=== PATIENT | male | born 1985 | race Caucasian/White ===

== ENCOUNTER → 2019-11-23 | Outpatient (CLI) | payer BC ==
--- NOTE | 2019-11-24 10:45 | RADIOLOGY REPORT (SQ) ---
EXAM DESCRIPTION: MRI RT LOWER JOINT WITHOUT COMPLETED DATE/TIME: 11/23/2019 8:49 pm REASON FOR STUDY: M23.91 UNSPECIFIED INTERNAL DERANGEMENT OF RIGHT KNEE M23.91 UNSPECIFIED INTERNAL DERANGEMENT OF RIGHT KNEE COMPARISON: None. TECHNIQUE: Rightknee images acquired and stored on PACS. Multiplanar images include fat sensitive s equences as T1, water sensitive sequences as FST2 or STIR, cartilage sensitive sequences as FSPD, and gradient echo sequences. LIMITATIONS: None. FINDINGS: JOINT AND BURSAE: Small joint effusion. No popliteal cyst. BONE CORTEX AND MARROW: Generalized bone bruising of the proximal tibia. ACL: Avulsion of the ACL from the femoral attachment. PCL: Intact. MCL: Grade 2 tear medial collateral ligament. LCL: Intact. No periligamentous edema or fluid. MEDIAL MENISCUS: No tears. No abnormal signal. LATERAL MENISCUS: No tears. No abnormal signal. MEDIAL COMPARTMENT: Cartilage preserved. No bone bruises or reactive marrow edema. No osteophytes. LATERAL COMPARTMENT: Cartilage preserved. No bone bruises or reactive marrow edema. No osteophytes. PATELLA: No chondromalacia. No subchondral cysts. Medial and lateral retinacula intact. EXTENSOR MECHANISM: Intact. Quadriceps and patella tendons normal. SOFT TISSUES: Edema along the medial head of the gastrocnemius muscle. OTHER: No other significant finding. IMPRESSION: ACL avulsions from the femoral attachment. Grade 2 tear medial collateral ligament. Edema in the gastrocnemius muscle. TECHNICAL DOCUMENTATION: JOB ID: [id number] 2010 [facility]- All Rights Reserved Reading location - IP/workstation name: [email or web address]
== END ==
LOC: RAD 18:52
PROVIDERS: ATTEND Orthopaedic Surgery
DX: M23.91 Unspecified internal derangement of right knee (principal)

== ENCOUNTER 2020-02-24 06:45 | Day surgery (SDC) | payer BC ==
[~2020-02-24 06:45] MED LIST: ACETAMINOPHEN 325 MG TABLET PO PRN; CEFAZOLIN SODIUM 2 GM in DEXTROSE 5%-WATER 100 ML IV PRN; DEXAMETHASONE SOD PHOSPHATE INJ 4 MG/1 ML VIAL ONE; FENTANYL CITRATE INJ/PF 100 MCG/2 ML AMPUL ONE; HYDROMORPHONE HCL INJ/PF 2 MG/ML AMPULE ONE; LACTATED RINGERS 1000 ML IV PRN; LIDOCAINE 0.5% INJ-PF (5 MG/ML) 50 ML SDV SUBCUT PRN; MIDAZOLAM 2 MG/2 ML INJ ONE; ONDANSETRON HCL INJ/PF 4 MG/2 ML SDV ONE; OXYCODONE HCL IR 5 MG TABLET PO PRN; PROPOFOL INJ 200 MG/20 ML VIAL IV ONE; TRAMADOL HCL 50 MG TABLET PO PRN
[2020-02-24] MEDS ORDERED: TRAMADOL HCL 50 MG TABLET ONE (07:03)
[2020-02-24] MEDS ORDERED: ACETAMINOPHEN 325 MG TABLET ONE (07:03)
[2020-02-24] MEDS ORDERED: OXYCODONE HCL SR 10 MG TABLET PO ONE (07:03)
[2020-02-24] MEDS ORDERED: MIDAZOLAM 2 MG/2 ML INJ ONE (07:20)
[2020-02-24] MEDS ORDERED: ROPIVACAINE HCL 0.5% INJ/PF (5 MG/1 ML) 30 ML SDV ONE (07:20)
[2020-02-24] MEDS ORDERED: FENTANYL CITRATE INJ/PF 100 MCG/2 ML AMPUL ONE ×2 (07:20→12:26)
[2020-02-24] MEDS ORDERED: EPINEPHRINE INJ/PF 1 MG/1 ML AMPULE ONE (08:55)
[2020-02-24] MEDS ORDERED: OXYCODONE-ACETAMINOPHEN 5-325 MG TABLET PO PRN ×2 (09:33)
[2020-02-24] MEDS ORDERED: DIPHENHYDRAMINE HCL 50 MG/ML VIAL IV PRN (09:33)
[2020-02-24] MEDS ORDERED: PROMETHAZINE HCL INJ 25 MG/1 ML VIAL IV PRN ×2 (09:33)
[2020-02-24] MEDS ORDERED: MEPERIDINE HCL/PF INJ 25 MG/1 ML DISP.SYRIN IV PRN (09:33)
[2020-02-24] MEDS ORDERED: MORPHINE SULFATE 10 MG/ML INJ IV PRN ×2 (09:33→13:23)
[2020-02-24] MEDS ORDERED: FENTANYL CITRATE INJ/PF 100 MCG/2 ML AMPUL IV PRN ×3 (09:33)
[2020-02-24] MEDS ORDERED: ONDANSETRON HCL INJ/PF 4 MG/2 ML SDV IV PRN (09:33)
--- NOTE | 2020-02-24 12:11 | Operative Report ---
Operative Report DATE OF SURGERY: 02/24/20 PREOPERATIVE DIAGNOSIS: Right anterior cruciate ligament rupture POSTOPERATIVE DIAGNOSIS: right anterior cruciate ligament rupture, lateral meniscus tear OPERATION: Right anterior cruciate ligament reconstruction and partial lateral meniscectomy SURGEON: ADRIENNE WOOD JR ANESTHESIA: GA COMPLICATIONS: none ESTIMATED BLOOD LOSS: 30 PROCEDURE: The patient is a 35-year-old male who sustained an injury twisting during softball feeling a pop. After obtaining an MRI we reviewed it that demonstrated right ACL rupture. After they had undergone some physical therapy, his swelling had returned to normal, and they had full range of motion we decided to proceed with surgery due to continued subluxation and instability of their left knee. The patient was brought into the operating room and placed supine on the operating table. 2 g of Ancef were provided. They were placed under general anesthesia and then the right extremity was prepped and draped in standard sterile fashion. The knee was evaluated and a positive pivot shift was found as well as a positive Lockman's test under anesthesia. After an appropriate timeout an incision was made into the lateral aspect of the knee. The arthroscope was introduced and the patellofemoral joint was evaluated. We then went into the medial gutter and subsequently into the medial compartment where we introduced a spinal needle for appropriate positioning of the medial portal. An incision was made to create the medial portal followed by introduction of a probe. The medial compartment was evaluated and the joint was found to be relatively pristine with no chondral injury or meniscal injury. After this a shaver was introduced and debridement of the fat pad was initiated as well as removal of the ligamentum mucosum. Upon obtaining appropriate visualization and after removal of some of the soft tissue, the ACL stump was probed. It was apparent that it had ruptured off of the femoral attachment and was grossly loose with manipulation with a probe. We then proceeded into the lateral compartment where a posterior lateral meniscus tear was appreciated. This was relatively central and not amenable to fixation. We then proceeded to debride this back to a stable base with combination of a biter and a shaver. We returned to the notch and begin debriding the ACL. This was then removed down to the ACL footprint on both the tibia and femur with a shaver. The allograft was brought on to the instrument table where it was thawed. The graft was measured and sized. While waiting for the allograft to thaw, we cleared the intercondylar notch on the lateral femoral condyle and identified the footprint as well as the bifurcate ridge. After doing this the guide for the guidepin was placed and hooked posteriorly to the lateral femoral condyle. It was drilled with appropriate position and then removed and we inspected the position to ensure appropriate graft placement. Following this we passed the guidepin through the lateral cortex of the femur and out the skin. We then drilled the femur with a flexible reamer taking care to avoid injury to the medial femoral condyle as we passed. The femur was initially reamed with a 10 mm wide reamer to a depth of 10 mm then withdrawn and inspected to ensure an appropriate posterior wall, followed by drilling to 30 mm of depth. A suture loop was placed in the guidepin eyelet and this was pulled through and snapped. We turned our attention to the tibia. An incision was made over the anterior medial portion of the tibia for appropriate graft tunnel placement. We then placed a tibial guide just lateral to the medial tibial eminence at the center of the ACL footprint and had approximately 52 mm of tunnel distance. We passed a guidewire and confirmed arthroscopically that this was placed in an ideal position. We then drilled with a cigar reamer to 10.5 mm. We prepped the graft tunnels apertures to allow appropriate passage of the graft with a combination of a shaver and a tap. After this we pulled the femoral suture through the tibial tunnel and then passed the graft sutures through both the tibial and femoral tunnels. With arthroscopic guidance we passed the graft until it was secured proximally into the femur. The bone portion of the graft was pulled deep to the intercondylar surface. A guidewire was placed at 2 o'clock position followed by a tap, followed by a 23 mm 8 mm interference screw. After this the distal aspect of the graft was pulled tight and the knee was taken through multiple cycles to allow for appropriate graft tension. A posterior drawer test was performed and with maintenance of the graft tension a guidewire was placed on the anterior aspect of the graft followed by a tap followed by a 8 mm x 28 mm interference screw. Unfortunately there is still some micromotion of the graft and at this time I felt it imperative to secure the graft with a second interference screw. We placed the second interference screw at approximately 3:00 with a 7 mm x 23 mm interference screw. After this the knee was evaluated and a pivot shift was no longer positive and there was no more positive Lockman's test. This was also evaluated arthroscopically and no impingement against the notch nor against the PCL was noted through the full range of motion. The sutures were removed on either side of the graft and the knee was irrigated 1 last time and evacuated. Excess graft was removed out of the distal tibial tunnel. The tibial incision was closed with 2-0 interrupted inverted Monocryl followed by a running nylon 3 oh stitch. 3-0 nylon was used for portal stitches in the portal sites. Xeroform was placed over the wounds followed by sterile 4 x 4's followed by sterile web roll followed by an Dipak wrap. The patient was awakened from anesthesia and transferred to the PACU in stable condition.
[2020-02-24] MEDS ORDERED: ACETAMINOPHEN 1,000 MG/100 ML RTUPB IV ONE (12:21)
[2020-02-24] MEDS ORDERED: KETOROLAC TROMETHAMINE INJ/PF 30 MG/1 ML SDV ONE (12:21)
[2020-02-24] MEDS ORDERED: ONDANSETRON 4 MG TAB.RAPDIS PO PRN (13:21)
[2020-02-24] MEDS ORDERED: OXYCODONE HCL IR 5 MG TABLET PO PRN ×2 (13:22→13:23)
[2020-02-24] MEDS ORDERED: DIPHENHYDRAMINE HCL 25 MG CAPSULE PO PRN (13:24)
[2020-02-24] MEDS ORDERED: TRAMADOL HCL 50 MG TABLET PO PRN (13:25)
[2020-02-24] MEDS ORDERED: DEXAMETHASONE SOD PHOS INJ 10 MG/1 ML VIAL IV PRN (13:27)
[2020-02-24] MEDS ORDERED: ACETAMINOPHEN 325 MG TABLET PO SCH (14:00)
[2020-02-24 14:31] VITALS: BP 130/90
--- NOTE | 2020-02-25 13:49 | Discharge Summary ---
Discharge Summary (SDC) - Discharge Final Diagnosis: Right knee anterior cruciate ligament rupture Date of Surgery: 02/24/20 Discharge Date: 02/24/20 Condition: Stable Forms: ASU Anesthesia D/C Instruction, Discharge POC-Surgical Service Treatment or Instructions: The patient was given a full packet of information for postoperative instructions in the office. He read through it and then discussed any other questions with me prior to surgery. His goal between now and the 10-day postop is to obtain full knee extension and 90 degrees of flexion. Aside from that he is to rest ice elevate and protect the knee. He was instructed to leave his dressing in place until follow-up unless it became saturated and at that time he could change it every 2 to 3 days. He was also given instructions on reasons for acute follow-up if needed. He is weightbearing as tolerated but encouraged to avoid excessive flexion under weightbearing. Pain medication was prescribed preoperatively. He has been instructed to take aspirin [id number], 81 mg daily for 6 weeks for DVT prophylaxis Referrals: ADRIENNE WOOD JR, DO [ACTIVE PROVISIONAL STAFF] - Discharge Diet: As Tolerated Respiratory Treatments at Home: Deep Breathing/Coughing Discharge Activity: Activity As Tolerated, No Driving, Keep Legs Elevated, No Lifting Over 10 Pounds, Slowly Increase Activity, No tub bath, Walk Frequently Home Care Assistance: None Needed, Provided by Family Adaptive Devices on Discharge: Axillary Crutches Report the Following to Your Physician Immediately: Shortness of Breath, Fever over 101 Degrees, Unusual Bleeding, Drainage-Yellow, IV Site Infection Signs
== END 2020-02-24 14:10 | disposition home or self-care (01) ==
LOC: OROUT 06:45
PROVIDERS: ATTEND Orthopaedic Surgery
DX: S83.511A Sprain of anterior cruciate ligament of right knee, initial encounter (principal); S83.281A Other tear of lateral meniscus, current injury, right knee, initial encounter; X50.1XXA Overexertion from prolonged static or awkward postures, initial encounter; Y93.64 Activity, baseball; F17.210 Nicotine dependence, cigarettes, uncomplicated; J45.909 Unspecified asthma, uncomplicated; Z79.899 Other long term (current) drug therapy; Z11.59 Encounter for screening for other viral diseases
CPT/HCPCS: 87635; 29888; 29881; J2795; J2250; J0690; J1100; J0171; J3010; J1885; J1170; J2405; J7060; J2704; J0131; 1400; C1713

== ENCOUNTER 2020-11-10 23:03 | Emergency (ER) | payer BC ==
[2020-11-11] MEDS ORDERED: LIDOCAINE 2% INJ (20 MG/ML) 20 ML MDV INJ ONE (02:30)
[2020-11-11] MEDS ORDERED: LIDOCAINE 2% INJ (20 MG/ML) 20 ML MDV ONE (02:33)
[2020-11-11] MEDS ORDERED: DIPH/PERTUSS(ACELL)/TETANUS VAC/PF 0.5 ML SYR (>=10YO) IM ONE (02:38)
--- NOTE | 2020-11-11 02:39 | ER Document Report ---
HPI - HPI Time Seen by Provider: 11/11/20 02:13 Pain Level: 3 Notes: 35-year-old male patient presenting to the emergency department with laceration to his left thigh. Patient reports this was accidental. His tetanus is not up-to-date. The laceration occurred just prior to arrival. - ROS Systems Reviewed and Negative: Yes All other systems reviewed and negative - CONSTITUTIONAL Constitutional: DENIES: Fever, Chills - EENT EENT: DENIES: Sore Throat, Ear Pain, Eye problems - NEURO Neurology: DENIES: Headache, Weakness, Vision blurred, Dizzinesss / Vertigo - CARDIOVASCULAR Cardiovascular: DENIES: Chest pain - RESPIRATORY Respiratory: DENIES: Trouble Breathing, Coughing - GASTROINTESTINAL Gastrointestinal: DENIES: Abdominal Pain, Black / Bloody Stools - URINARY Urinary: DENIES: Dysuria, Urgency, Frequency - REPRODUCTIVE Reproductive: DENIES: :, Postmenopausal, Abnormal bleeding / discharge - MUSCULOSKELETAL Musculoskeletal: DENIES: Extremity pain - DERM Skin Problems: Laceration Past Medical History - General Information source: Patient - Social History Smoking Status: Current Every Day Smoker Drug Abuse: None Family History: Reviewed & Not Pertinent - Past Medical History Cardiac Medical History: Denies: Hx Coronary Artery Disease, Hx Heart Attack, Hx Hypertension Pulmonary Medical History: Reports: Hx Asthma - EXERCISE INDUCED Denies: Hx Bronchitis, Hx COPD, Hx Pneumonia Neurological Medical History: Denies: Hx Cerebrovascular Accident, Hx Seizures - ADHD - NO MEDS; MIGRAINES Renal/ Medical History: Denies: Hx Peritoneal Dialysis Musculoskeletal Medical History: Denies Hx Arthritis - Immunizations Hx Diphtheria, Pertussis, Tetanus Vaccination: Yes - 2016 [facility] Provider Document - CONSTITUTIONAL Notes: PHYSICAL EXAMINATION: GENERAL: Well-appearing, well-nourished and in no acute distress. HEAD: Atraumatic, normocephalic. EYES: Pupils equal round extraocular movements intact, conjunctiva are normal. ENT: Nares patent NECK: Normal range of motion LUNGS: No respiratory distress Musculoskeletal: Normal range of motion NEUROLOGICAL: Normal speech, normal gait. PSYCH: Normal mood, normal affect. SKIN: 1 cm laceration to left medial thigh, superficial, approximates well, no active bleeding noted. - INFECTION CONTROL TRAVEL OUTSIDE OF THE [place] IN LAST 30 DAYS: No Course - Re-evaluation Re-evalutation: Laceration repaired under sterile technique, patient tolerated well, dressing applied. See procedure note. - Vital Signs Vital signs: Temp Pulse Resp BP Pulse Ox 97.5 F 67 16 118/76 100 11/11/20 01:20 11/11/20 01:20 11/11/20 01:23 11/11/20 01:11/11/20 01:23 - Laboratory Results Critical Laboratory Results Reviewed: No Critical Results - Radiology Results Critical Radiology Results Reviewed: No Critical Results Procedures - Laceration/Wound Repair Left thigh Wound length (cm): 1 Wound's Depth, Shape: Superficial Laceration pre-procedure: Sterile PPE donned Anesthetic type: 2% Lidocaine Wound explored: Clean, No foreign body removed, Contaminated, Foreign body removed Wound Repaired With: Sutures Suture Size/Type: 5:0 Number of Sutures: 2 Discharge - Discharge Clinical Impression: Laceration Condition: Stable Disposition: HOME, SELF-CARE Additional Instructions: Laceration Care Your laceration has been sutured to keep the skin edges aligned during healing. The time of suture removal depends on the nature and location of your cut. Please follow the care instructions the doctor has outlined for you and return for further care, according to the schedule you've been given. Keep the wound and dressing clean. Unless you were told otherwise, you may shower daily, blotting the wound dry with a clean, unused towel. At other times, If the dressing gets wet or blood soaked, remove it and blot the wound dry, then reapply a new dressing. Unless you were instructed otherwise, dressings should be changed at least daily. If any signs of infection occur (swelling, redness, increasing tenderness, red streaks, tender lumps in the armpit or groin above the laceration, or fever), see the doctor immediately. Please return to the emergency department or your primary care provider in 10 days for suture removal. Please return earlier if you develop any signs of infection such as increased redness, swelling, foul-smelling drainage or fever. Referrals: LEROY MAYER MD [Primary Care Provider] - Follow up as needed
[2020-11-11 03:01] VITALS: BP 123/78
== END 2020-11-11 03:02 | disposition home or self-care (01) ==
LOC: ER 23:03
DX: S71.112A Laceration without foreign body, left thigh, initial encounter (principal); X58.XXXA Exposure to other specified factors, initial encounter; F17.200 Nicotine dependence, unspecified, uncomplicated; J45.909 Unspecified asthma, uncomplicated; Z23 Encounter for immunization
CPT/HCPCS: 99283; 96372; 90715; 12001; J3490